=== PATIENT | male | born 1995 | race Caucasian/White ===

== ENCOUNTER 2017-02-28 18:18 | Emergency (ER) | payer OTHER ==
[~2017-02-28] VITALS: Ht 182.9 cm; Wt 86.4 kg
[~2017-02-28 18:18] MED LIST: ALBUTEROL0.09 MG/A1 IH; AMOXICILLIN 50500 MG PO; LORTAB 5/500 501 TAB PO; MOTRIN 400400 MG/TAB PO; NO HOME MEDICATIONS; NORCO 325 MG-51 TAB PO; PERCOCET 325 MG1 TA2 PO; PROVENTIL0.09 MG/A1 IH
[2017-02-28 18:20] VITALS: TEMP 97.9
[2017-02-28] MEDS ORDERED: AMOXICILLIN 8751 TAB PO (18:52)
[2017-02-28] MEDS ORDERED: NORCO 325 MG-51 TAB PO (18:52)
[2017-02-28 19:02] VITALS: BP 159/92; PULSE 53
== END 2017-02-28 19:06 | disposition home or self-care (01) ==
LOC: COL.ER 18:18
DX: K08.89 Other specified disorders of teeth and supporting structures (principal); K03.81 Cracked tooth

== ENCOUNTER 2019-06-13 13:51 | Emergency (ER) | payer OTHER ==
[~2019-06-13] VITALS: Ht 185.4 cm; Wt 83.6 kg
[2019-06-13 13:57] VITALS: BP 132/82; TEMP 99.7
[2019-06-13 15:03] VITALS: PULSE 74
== END 2019-06-13 15:10 | disposition home or self-care (01) ==
LOC: COL.ER 13:51
DX: S63.501A Unspecified sprain of right wrist, initial encounter (principal); X50.1XXA Overexertion from prolonged static or awkward postures, initial encounter; Y93.I9 Activity, other involving external motion

== ENCOUNTER → 2019-06-13 | Outpatient (CLI) | payer OTHER ==
[~2019-06-13] MED LIST changes: +AMOXICILLIN 8751 TAB PO
[2019-06-13 18:17] VITALS: BP 142/76; PULSE 64; TEMP 99.3
== END ==
LOC: COL.ER 17:47
DX: Z47.89 Encounter for other orthopedic aftercare (principal)

== ENCOUNTER 2022-06-04 15:29 | Emergency (ER) | payer OTHER ==
[~2022-06-04] VITALS: Ht 182.9 cm; Wt 79.5 kg
[2022-06-04 15:42] VITALS: TEMP 98.3
[2022-06-04 17:06] VITALS: BP 147/82; PULSE 73
== END 2022-06-04 17:10 | disposition home or self-care (01) ==
LOC: COL.ER 15:29
DX: S68.112A Complete traumatic metacarpophalangeal amputation of right middle finger, initial encounter (principal); Z28.310 Unvaccinated for COVID-19; W20.8XXA Other cause of strike by thrown, projected or falling object, initial encounter; Y92.59 Other trade areas as the place of occurrence of the external cause; Y99.0 Civilian activity done for income or pay